=== PATIENT | male | born 1980 | race Caucasian/White ===

== ENCOUNTER → 2016-06-11 | Outpatient (CLI) | payer OTHER ==
[~2016-06-11] MED LIST: FENOFIBRATE160 MG PO; FISH OIL500 M1 PO; NORCO 325 MG-51 TAB PO; TRESIBA FL100 UNIT/1 SQ
[2016-06-11 16:02] LABS: BUN 12 mg/dL (7-18); GFR (ESTIMATED) 127 ML/MIN (>60)
== END ==
LOC: CARL-LAB 07:52
PROVIDERS: Internal Medicine Endocrinology, Diabetes & Metabolism
DX: Z79.4 Long term (current) use of insulin (principal)

== ENCOUNTER → 2017-01-28 | Outpatient (CLI) | payer OTHER ==
[2017-01-28 13:48] LABS: BUN 12 mg/dL (7-18)
[2017-01-28 13:57] LABS: GFR (ESTIMATED) 126 ML/MIN (>60)
== END ==
LOC: CARL-LAB 07:16
PROVIDERS: Internal Medicine Endocrinology, Diabetes & Metabolism
DX: E11.65 Type 2 diabetes mellitus with hyperglycemia (principal); E78.2 Mixed hyperlipidemia; Z79.4 Long term (current) use of insulin